=== PATIENT | male | born 1995 | race African-American/Black ===

== ENCOUNTER 2022-12-01 09:02 | Emergency (ER) | payer MEDICAID ==
[~2022-12-01] VITALS: Ht 175.3 cm; Wt 68.0 kg
[2022-12-01 09:14] VITALS: BP 133/86
[2022-12-01] MEDS ORDERED: VALA100044 PO (11:04)
[2022-12-01] MEDS ORDERED: P50 PO (11:04)
== END 2022-12-01 11:35 | disposition home or self-care (01) ==
LOC: ER 09:02
DX: G51.0 Bell's palsy (principal)
CPT/HCPCS: 71045; 99284